=== PATIENT | female | born 1980 | race Caucasian/White ===

== ENCOUNTER 2018-10-16 16:56 | Emergency (ER) | payer MEDICAID ==
[~2018-10-16] VITALS: Ht 157.5 cm; Wt 91.6 kg
[2018-10-16 17:01] VITALS: BP 141/84
--- NOTE | 2018-10-16 17:07 | NUR ---
PT PRESENTS TO ED WITH COPY OF ABNORMAL LABS DONE YESTERDAY WITH HGB 6.5. PT WAS PRESCIBED AMOXICILLIN YESTERDAY FOR HER COUGH. PATIENT STATES PAIN OF 0/10 AT THIS TIME; VSS; PATIENT POSITIONED FOR COMFORT; HOB ELEVATED; BEDRAILS UP X2; BED DOWN. ER MD MADE AWARE OF PT STATUS.
--- NOTE | 2018-10-16 17:29 | NUR ---
Patient being evaluated by DR MARTIN at bedside.
[2018-10-16 17:33] LABS: BASOPHILS % (AUTO) 0.5 % (0.0-2.0); EOSINOPHILS # (AUTO) 0.2 K/uL (0-0.4); EOSINOPHILS % (AUTO) 2.5 % (0.0-4.0); LYMPHOCYTES # (AUTO) 2.5 K/uL (2.5-16.5); MEAN CORPUSCULAR HEMOGLOBIN 14 pg (27-31); MEAN CORPUSCULAR HGB CONC 27 g/dL (33-37); MEAN CORPUSCULAR VOLUME 50.8 fL (80-94); MONOCYTES # (AUTO) 0.5 K/uL (0.8-1.0); MONOCYTES % (AUTO) 5.5 % (1.7-9.3); NEUTROPHILS % (AUTO) 64.5 % (42.2-75.2); PLATELET COUNT (AUTO) 328 K/uL (140-450); RED BLOOD CELL COUNT(AUTO) 4.73 MIL/uL (4.20-5.40); RED CELL DISTRIBUTION WIDTH 20.8 % (11.6-13.7); WHITE BLOOD COUNT (AUTO) 9.3 K/uL (4.8-10.8)
[2018-10-16 17:41] LABS: HEMOGLOBIN 6.6 g/dL (12.0-16.0)
[2018-10-16 17:44] LABS: ANION GAP 12.5 (8-16); CARBON DIOXIDE 26.3 mmol/L (21-32); CREATININE 0.7 mg/dL (0.6-1.3); POTASSIUM 3.8 mmol/L (3.5-5.1)
[2018-10-16 17:50] LABS: ALBUMIN 3.6 g/dL (3.4-5.0); TOTAL BILIRUBIN 0.3 mg/dL (0.0-1.0)
[2018-10-16 18:25] VITALS: BP 141/84
== END 2018-10-16 18:24 | disposition home or self-care (01) ==
LOC: MED 16:56
DX: D50.9 Iron deficiency anemia, unspecified (principal); J40 Bronchitis, not specified as acute or chronic; N92.0 Excessive and frequent menstruation with regular cycle
CPT/HCPCS: 36415; 80053; 81002; 81025; 85025; 93005; 99284

== ENCOUNTER 2018-12-05 16:53 | Emergency (ER) | payer MEDICAID ==
[~2018-12-05] VITALS: Ht 157.5 cm; Wt 93.9 kg
[2018-12-05 16:57] VITALS: BP 131/87
--- NOTE | 2018-12-05 17:22 | NUR ---
PATIENT PRESENTS TO ED WITH C/O LT SIDED ABD PAIN X 6 DAYS . DENIES N/V/D; DENIES ANY FEVER. LBM 12/05/18. PATIENT STATES PAIN OF 4/10 AT THIS TIME; VSS; PATIENT POSITIONED FOR COMFORT; HOB ELEVATED; BEDRAILS UP X1; BED DOWN. PENDING ER MD EVALUATION.
[2018-12-05] MEDS ORDERED: KETOROLAC 60 MG/2 ML VIAL IM ONE (17:45)
--- NOTE | 2018-12-05 18:02 | NUR ---
PATIENT TAKEN FOR ULTRASOUND VIA WHEELCHAIR AT THIS TIME.
[2018-12-05 18:03] LABS: BASOPHILS % (AUTO) 0.3 % (0.0-2.0); EOSINOPHILS # (AUTO) 0.1 K/uL (0-0.4); EOSINOPHILS % (AUTO) 1.3 % (0.0-4.0); HEMATOCRIT 33.9 % (36-48); LYMPHOCYTES % (AUTO) 25.4 % (20.5-51.1); MEAN CORPUSCULAR HEMOGLOBIN 25 pg (27-31); MEAN CORPUSCULAR HGB CONC 32 g/dL (33-37); MEAN CORPUSCULAR VOLUME 75.8 fL (80-94); MONOCYTES # (AUTO) 0.5 K/uL (0.8-1.0); MONOCYTES % (AUTO) 6.2 % (1.7-9.3); NEUTROPHILS # (AUTO) 5.3 K/uL (1.8-7.7); NEUTROPHILS % (AUTO) 66.8 % (42.2-75.2); PLATELET COUNT (AUTO) 289 K/uL (140-450); RED BLOOD CELL COUNT(AUTO) 4.48 MIL/uL (4.20-5.40); RED CELL DISTRIBUTION WIDTH 34.3 % (11.6-13.7); WHITE BLOOD COUNT (AUTO) 7.9 K/uL (4.8-10.8)
[2018-12-05 18:11] LABS: ANION GAP 11.2 (8-16); CARBON DIOXIDE 27.5 mmol/L (21-32); CREATININE 0.6 mg/dL (0.6-1.3); POTASSIUM 3.7 mmol/L (3.5-5.1)
[2018-12-05 18:17] LABS: ALBUMIN 3.4 g/dL (3.4-5.0); TOTAL BILIRUBIN 0.1 mg/dL (0.0-1.0)
--- NOTE | 2018-12-05 19:08 | NUR ---
Pt report given to DAI Lopez. Pt in stable condition. Transfer of care at this time.
--- NOTE | 2018-12-05 19:22 | NUR ---
RECEIVED REPORT FROM AM NURSE. PT LAYING IN BED, RR EVEN AND UNLABORED. VSS, REPORTS 4/10 LLQ PAIN AT THIS TIME. ALL NEEDS MET.
[2018-12-05 19:35] VITALS: BP 132/72
== END 2018-12-05 19:35 | disposition home or self-care (01) ==
LOC: MED 16:53
DX: N83.202 Unspecified ovarian cyst, left side (principal); R03.0 Elevated blood-pressure reading, without diagnosis of hypertension
CPT/HCPCS: 36415; 76856; 80053; 81002; 81025; 85025; 93976; 96372; 99284; J1885; Q0092

== ENCOUNTER 2019-01-10 15:06 | Emergency (ER) | payer MEDICAID ==
[~2019-01-10] VITALS: Ht 157.5 cm; Wt 89.0 kg
--- NOTE | 2019-01-10 15:24 | NUR ---
PT AMBULATED TO LOBBY AT THIS TIME W/ VSS. PT DENIES SUICIDAL IDEATION OR ANY PLAN OF SUICIDE AT THIS TIME.
--- NOTE | 2019-01-10 17:07 | NUR ---
CALLED FOR PT IN THE LOBBY AND OUTSIDE WITHOUT A RESPONSE.
--- NOTE | 2019-01-10 17:57 | NUR ---
CALLED PT IN LOBBY, NO ANSWER
--- NOTE | 2019-01-10 17:59 | NUR ---
PATIENT LEFT WITHOUT BEING SEEN BY DR. ELAINE. NO FURTHER CARE PROVIDED FOR PATIENT.
== END 2019-01-10 17:07 | disposition left against medical advice (07) ==
LOC: MED 15:06
DX: F32.9 Major depressive disorder, single episode, unspecified (principal); Z53.21 Procedure and treatment not carried out due to patient leaving prior to being seen by health care provider

== ENCOUNTER 2019-06-09 13:32 | Emergency (ER) | payer MEDICAID ==
[~2019-06-09] VITALS: Ht 157.5 cm; Wt 90.3 kg
[2019-06-09 13:40] VITALS: BP 157/80
--- NOTE | 2019-06-09 13:43 | NUR ---
TO LOBBY A/W BED AMBULATORY
--- NOTE | 2019-06-09 14:02 | NUR ---
PT AMBULATED TO ER BED 05
--- NOTE | 2019-06-09 14:05 | NUR ---
C/O CHEST PAIN WITH CONGESTION FOR 2 DAYS. PT ADDS SORE THROAT WITH PAIN 3/10. REDNESS TO THROAT. LUNGS CLEAR BILATERALLY. NO COUGHING AT THIS TIME. PT IS PERSIAN SPEAKING
--- NOTE | 2019-06-09 14:06 | NUR ---
BREATHING EVEN AND UNLABORED. NO RESP DISTRESS NOTED. PT ON RA.
--- NOTE | 2019-06-09 14:07 | NUR ---
EMT AT BEDSIDE FOR EKG
--- NOTE | 2019-06-09 14:09 | NUR ---
FLU SWAB COLLECTED
--- NOTE | 2019-06-09 14:56 | NUR ---
XRAY AT BEDSIDE
--- NOTE | 2019-06-09 15:25 | NUR ---
PT MOVED TO BED 7
[2019-06-09 15:50] VITALS: BP 131/78
--- NOTE | 2019-06-09 15:50 | NUR ---
VS STABLE, PT ALERT AND AWAKE
--- NOTE | 2019-06-09 17:10 | NUR ---
Patient discharged BY DR CERON. Written and verbal after care instructions given and explained BY DR CERON. Patient Ambulatory with steady gait.
== END 2019-06-09 17:10 | disposition home or self-care (01) ==
LOC: MED 13:32
DX: F41.9 Anxiety disorder, unspecified (principal); Z98.51 Tubal ligation status
CPT/HCPCS: 71045; 87804; 93005; 99284; Q0092

== ENCOUNTER 2019-08-12 14:57 | Emergency (ER) | payer MEDICAID ==
[~2019-08-12] VITALS: Ht 162.6 cm; Wt 89.4 kg
[2019-08-12 15:10] VITALS: BP 153/98
--- NOTE | 2019-08-12 15:16 | NUR ---
WAIT AT LOBBY.HANDED ON URINE CUP.
--- NOTE | 2019-08-12 16:36 | NUR ---
pt ambulated to bed 05
--- NOTE | 2019-08-12 16:46 | NUR ---
c/o heavy menses x2 days; soaked through sanitary napkins since monday admits to history of fibroids and ovarinal cyst
--- NOTE | 2019-08-12 17:24 | NUR ---
ULTRASOUND AT BEDSIDE.
--- NOTE | 2019-08-12 17:25 | NUR ---
US tech at bedside for exam.
[2019-08-12 17:54] LABS: BASOPHILS # (AUTO) 0.1 K/uL (0.00-0.22); BASOPHILS % (AUTO) 0.7 % (0.0-2.0); EOSINOPHILS # (AUTO) 0.1 K/uL (0-0.4); EOSINOPHILS % (AUTO) 1.1 % (0.0-4.0); HEMATOCRIT 29.3 % (36-48); HEMOGLOBIN 9.6 g/dL (12.0-16.0); LYMPHOCYTES # (AUTO) 2.2 K/uL (2.5-16.5); MEAN CORPUSCULAR HEMOGLOBIN 25 pg (27-31); MEAN CORPUSCULAR HGB CONC 33 g/dL (33-37); MEAN CORPUSCULAR VOLUME 76.1 fL (80-94); MONOCYTES # (AUTO) 0.5 K/uL (0.8-1.0); MONOCYTES % (AUTO) 4.8 % (1.7-9.3); NEUTROPHILS # (AUTO) 8.1 K/uL (1.8-7.7); NEUTROPHILS % (AUTO) 73.4 % (42.2-75.2); PLATELET COUNT (AUTO) 377 K/uL (140-450); RED BLOOD CELL COUNT(AUTO) 3.86 MIL/uL (4.20-5.40); RED CELL DISTRIBUTION WIDTH 15.5 % (11.6-13.7); WHITE BLOOD COUNT (AUTO) 11.1 K/uL (4.8-10.8)
--- NOTE | 2019-08-12 17:58 | NUR ---
PT SITTING UPRIGHT IN BED AWAKE AND ALERT, RR EVEN AND UNLABORED. X2 SIDE RAILS RAISED, BED LOCKED AND IN LOW POSITION. VSS. WILL CONTINUE TO MONITOR.
[2019-08-12 18:03] LABS: PROTHROMBIN TIME 9.9 secs (10.8-13.4)
[2019-08-12 18:10] LABS: APPEARANCE,URINE HAZY (CLEAR); BILIRUBIN,URINE NEGATIVE (NEGATIVE); BLOOD, URINE 3+ (NEGATIVE); COLOR,URINE RED (YELLOW); LEUKOCYTE ESTERASE ,URINE NEGATIVE (NEGATIVE); UGLUCOSE NEGATIVE (NEGATIVE)
--- NOTE | 2019-08-12 18:10 | NUR ---
DR ANDERSON AT BEDSIDE EXAMINING PT
[2019-08-12 18:11] LABS: RBC,URINE TOO NUMEROUS TO COUN /HPF (0-5)
[2019-08-12 18:12] LABS: WBC,URINE 0-5 /HPF (0-5)
--- NOTE | 2019-08-12 18:47 | NUR ---
PT AMBULATED TO RESTROOM WITH STEADY GAIT.
--- NOTE | 2019-08-12 19:41 | NUR ---
Patient discharged with v/s stable. Written and verbal after care instructions given and explained. Patient alert, oriented and verbalized understanding of instructions. Ambulatory with steady gait. All questions addressed prior to discharge. ID band removed. Patient advised to follow up with PMD. Rx of PHENERGAN AND PREMARIN given. Patient educated on indication of medication including possible reaction and side effects. Opportunity to ask questions provided and answered.
[2019-08-12 19:42] VITALS: BP 135/78
== END 2019-08-12 19:41 | disposition home or self-care (01) ==
LOC: MED 14:57
DX: N93.8 Other specified abnormal uterine and vaginal bleeding (principal); D25.9 Leiomyoma of uterus, unspecified
CPT/HCPCS: 36415; 76830; 81001; 84702; 85025; 85610; 85730; 99284; Q0092

== ENCOUNTER 2020-02-21 14:58 | Emergency (ER) | payer MEDICAID ==
[~2020-02-21] VITALS: Ht 157.5 cm; Wt 89.4 kg
[2020-02-21 15:05] VITALS: BP 135/85
--- NOTE | 2020-02-21 15:13 | NUR ---
39 Y/O F C/C INGROWN LEFT TOE NAIL X 20 DAYS. PER PT ATTEMPTED TO TRIM NAIL 20 DAYS AGO WITH NO SUCCESS. LEFT TOE APPEARS WITH ERYTHEMA AND SWOLLEN. PAIN 4/10, PULSATING SENSATION. NKA. NO HX. NO RX. NO NVD. SIDE RAIL X1.
[2020-02-21] MEDS ORDERED: LIDOCAINE MPF 1% 10 MG/ML VIAL INJ ONE (15:15)
[2020-02-21 16:02] VITALS: BP 135/85
== END 2020-02-21 16:02 | disposition home or self-care (01) ==
LOC: MED 14:58
DX: L60.0 Ingrowing nail (principal)
CPT/HCPCS: 11730; 99284; J2001

== ENCOUNTER 2020-06-30 14:50 | Emergency (ER) | payer MEDICAID ==
[~2020-06-30] VITALS: Ht 157.5 cm; Wt 95.7 kg
[2020-06-30 15:59] VITALS: BP 139/70
--- NOTE | 2020-06-30 16:05 | NUR ---
Patient discharged with v/s stable. Written and verbal after care instructions about constipation given and explained about STU [place]. Patient verbalized understanding. Ambulatory with steady gait. All questions addressed prior to discharge. Advised to follow up with PMD.
[2020-06-30 16:06] VITALS: BP 139/70
== END 2020-06-30 16:05 | disposition home or self-care (01) ==
LOC: MED 14:50
DX: R10.32 Left lower quadrant pain (principal); R30.0 Dysuria; Z90.710 Acquired absence of both cervix and uterus
CPT/HCPCS: 74018; 81002; 81025; 99283

== ENCOUNTER 2021-06-27 11:20 | Emergency (ER) | payer MEDICAID ==
[~2021-06-27] VITALS: Ht 157.5 cm; Wt 70.3 kg
[2021-06-27 12:00] VITALS: BP 108/67
[2021-06-27] MEDS ORDERED: IBUP-2213 PO (14:25)
--- NOTE | 2021-06-27 17:20 | NUR ---
Patient discharged with v/s stable. Written and verbal after care instructions ABOUT COVID 19 AND VIRAL ILLNESS given and explained. Patient alert, oriented and verbalized understanding of instructions. Ambulatory with steady gait. All questions addressed prior to discharge. ID band removed. Patient advised to follow up with PMD. Rx of IBUPROFEN given. Patient educated on indication of medication including possible reaction and side effects. Opportunity to ask questions provided and answered.
== END 2021-06-27 17:20 | disposition home or self-care (01) ==
LOC: MED 11:20
DX: J02.9 Acute pharyngitis, unspecified (principal); Z20.822 Contact with and (suspected) exposure to COVID-19; Z79.899 Other long term (current) drug therapy
CPT/HCPCS: 99283; U0003